=== PATIENT | female | born 1980 | race Caucasian/White ===

== ENCOUNTER 2024-02-06 12:35 | Emergency (ER) | payer OTHER, SELFPAY ==
[2024-02-06 12:39] VITALS: BP 129/80
--- NOTE | 2024-02-06 14:18 | ED.GENMED ---
History of Present Illness
General
Chief Complaint: DVT/Possible Blood Clot
Time Seen by Provider: 02/06/24 13:59
History of Present Illness
History of Present Illness:
43-year-old female with past medical history of migraine disorder here today for evaluation of approximately 3 months of intermittent episodes of atraumatic distal medial calf pain. Pain comes and goes. No falls or injuries. She has noted
swelling at times. No history of DVT. No estrogen use. No recent surgeries. No active cancer.
Past History
Past History
ED Past Medical History: None
ED Past Surgical History: None
Social History
Tobacco: Non-smoker
Alcohol: None
Drug: None
Living: with family
Review of Systems
Review of Systems
All Other Systems: ROS reviewed and negative except as documented in HPI and ROS
Phy Exam
Physical Exam
Physical Exam:
GENERAL: Alert , in no apparent distress
EYE: pupils equal and reactive
NECK: Supple
NEUROLOGICAL: Alert and oriented, no focal neuro deficits
SKIN: Warm and dry, skin intact.
MUSCULOSKELETAL: No edema, well perfused. Mild tenderness noted along the medial distal right calf. No palpable cord. Pulses 2+ throughout. Sensation/motor intact.
PSYCH: Normal and appropriate interaction.
Course
Orders/Labs/Results
Orders:
Orders
02/06/24 12:47
US Legs, Right [US Periph Venous LOWER Ext RT] Urgent
Comment:
Reason For Exam: calf pain
Vital Signs
Initial and Last Documented VS:
Initial Vital Signs
Temp Pulse Resp BP Pulse Ox
98.0 F 84 18 129/80 96
02/06/24 12:39 02/06/24 12:39 02/06/24 12:39 02/06/24 12:39 02/06/24 12:39
Last Documented Vital Signs
Temp Pulse Resp BP Pulse Ox
98.0 F 84 18 129/80 96
02/06/24 12:39 02/06/24 12:39 02/06/24 12:39 02/06/24 12:39 02/06/24 12:39
MDM/Problems Addressed
Differential Diagnosis Includes:
43-year-old female with past medical history of migraine disorder here today for evaluation of approximately 3 months of intermittent episodes of atraumatic distal medial calf pain. Patient well-appearing. Vitals grossly within normal limits. On
exam, patient neurovascularly intact. An ultrasound was obtained which reveals no acute findings. Suspect MSK etiology, likely secondary to strain. Compartments soft throughout. No pain out of proportion to physical exam findings. No infectious
findings identified. Will recommend supportive measures and orthopedic follow-up. All questions answered. Stable for discharge.
*Critical Care Note
Total Time (30-74mins, 75-104mins- exclusive of procedures): Not Applicable
ED Attending Note
-
Portions of this chart may have been created with voice recognition software.� Occasional wrong word or��sound alike� substitutions may have occurred due to the inherent limitations of voice recognition software.
Discharge Plan
Departure
Patient Disposition: Home (Routine Discharge)
Date of Disposition: 02/06/24
Time of Disposition: 14:43
Patient with high blood pressure during this ER visit?: No
Condition: Good
Covid-19: Not Applicable
Discharge Problem:
Pain of right calf
Instructions: Muscle Strain (DC)
Prescriptions:
No Action
sertraline [Zoloft] 100 mg Tablet
100 mg PO DAILY
Referrals:
Mira Sanford I., DO [Active] - Follow up in 10 days
Taiwo Camejo MD [Family Provider] - Follow up in 5-7 days
Activity Restrictions/Additional Instructions:
Your ultrasound today is normal.
Rest. Avoid prolonged standing/walking.
Elevate your extremity at night.
Apply ice to the area as directed as needed. Take [id number] ibuprofen and Tylenol as directed as needed for pain.
Follow-up with your doctor within the next 5-7 days for close reevaluation.
Follow-up with the orthopedic specialists as an outpatient within the next 7 to 10 days for close reevaluation.
Return for any new, worsening, or concerning symptoms.
Discharge Date and Time
Print Language: VINCENTIAN
[2024-02-06 15:06] VITALS: BP 106/71
== END 2024-02-06 15:10 | disposition home or self-care (01) ==
LOC: EMR 12:35
PROVIDERS: EMERGENCY PHYSICIAN Emergency Medicine; FAMILY PHYSICIAN Family Medicine
DX: M79.661 Pain in right lower leg (principal); G43.909 Migraine, unspecified, not intractable, without status migrainosus; Z88.5 Allergy status to narcotic agent; Z88.8 Allergy status to other drugs, medicaments and biological substances
CPT/HCPCS: 99284; 93971